=== PATIENT | male | born 1980 | race Caucasian/White ===

== ENCOUNTER 2022-03-16 13:13 | Emergency (ER) | payer BC ==
[2022-03-16 14:35] LABS: ANION GAP 12.9 mEq/L (7-13)
== END 2022-03-16 15:20 | disposition home or self-care (01) ==
LOC: DL.ED 13:13
DX: I47.9 Paroxysmal tachycardia, unspecified (principal); I10 Essential (primary) hypertension; R73.9 Hyperglycemia, unspecified; E66.9 Obesity, unspecified; Z68.41 Body mass index [BMI] 40.0-44.9, adult
CPT/HCPCS: 36415; 71045; 80053; 83735; 84443; 84484; 85025; 85379; 93005; 99285